=== PATIENT | male | born 1995 | race Caucasian/White ===

== ENCOUNTER 2017-09-04 02:42 | Emergency (ER) | payer OTHER ==
[2017-09-04 02:47] VITALS: BP 135/101
[2017-09-04] MEDS ORDERED: IBUPROFEN 600 MG TAB PO ONE (02:54)
[2017-09-04] MEDS ORDERED: AMOXICILLIN 250 MG PREPACK#4 BTL TAKEHOME ONE (02:54)
[2017-09-04] MEDS ORDERED: LIDOCAINE HCL 4% TOPICAL SOLN 50ML MM ONE (02:55)
--- NOTE | 2017-09-04 03:03 | EDPHY ---
H & P Stated Complaint: L EAR PAIN/FOR 2 HRS Time Seen by Provider: 09/04/17 02:58 HPI/ROS: Chief Complaint: Ear pain HPI: 22-year-old male began having left ear pain 2 hr ago. Pain is getting progressively worse. About a 7/10. He has not have a history of recurrent ear infections. He has not started any foreign bodies into his ear. No barotrauma or recent pressure changes. No swimming or discharge from his ear. No fevers or chills. No recent congestion. No sore throat. No cough. ROS: 10 point Review of Systems is negative except as noted in the HPI. PMH: Denies Social History: No smoking, rare alcohol, no recreational drug use Family History: non-contributory Physical Exam: Gen: Awake, Alert, No Distress HEENT: Ears: Right ear is normal, left TM is erythematous and bulging, it is intact, there is no discharge Nose: no rhinorrhea Eyes: PERRLA, EOMI Mouth: Moist mucosa Neck: Supple, no JVD Skin: no rash Neuro: CN II-XII intact, Sensation grossly intact, Strength 5/5 in bilateral upper and lower extremities - Personal History Current Tetanus Diphtheria and Acellular Pertussis (TDAP): Yes - Medical/Surgical History Hx Asthma: No Hx Chronic Respiratory Disease: No Hx Diabetes: No Hx Cardiac Disease: No Hx Renal Disease: No Hx Cirrhosis: No Hx Alcoholism: No Hx HIV/AIDS: No Hx Splenectomy or Spleen Trauma: No Other PMH: NOSE SX, TONSIL SX - Social History Smoking Status: Never smoked Constitutional: Initial Vital Signs Temperature (C) 36.5 C 09/04/17 02:45 Heart Rate 48 L 09/04/17 02:45 Respiratory Rate 16 09/04/17 02:45 Blood Pressure 135/101 H 09/04/17 02:45 O2 Sat (%) 98 09/04/17 02:45 O2 Delivery Mode Room Air Allergies/Adverse Reactions: No Known Allergies Allergy (Unverified 09/04/17 02:45) Home Medications: Medication Instructions Recorded Amoxicillin Trihydrate [Amoxil] 500 mg PO Q8H #30 cap 09/04/17 Medical Decision Making ED Course/Re-evaluation: Patient is here anesthetized with topical 4% lidocaine. He is given ibuprofen 600 mg of ibuprofen and amoxicillin. Will refer to outpatient follow-up for further care. Departure - Departure Disposition: Home, Routine, Self-Care Clinical Impression: Acute otitis media Condition: Good Instructions: Ear Infection (ED) Additional Instructions: You may take ibuprofen alternating with acetaminophen as needed for pain. Please take her full course of antibiotics. Follow up with primary care physician in 4-5 days for re-evaluation. Referrals: VALENTIN Tucker,. [Clinic] - As per Instructions Prescriptions: Amoxicillin Trihydrate [Amoxil] 500 mg PO Q8H #30 cap
== END 2017-09-04 03:22 | disposition home or self-care (01) ==
DX: H66.92 Otitis media, unspecified, left ear (principal)